=== PATIENT | male | born 1990 | race Caucasian/White ===

== ENCOUNTER 2022-12-11 00:23 | Emergency (ER) | payer OTHER ==
[~2022-12-11] VITALS: Ht 182.9 cm; Wt 65.8 kg
[2022-12-11] MEDS ORDERED: PARO20 PO (01:58)
== END 2022-12-11 03:30 | disposition short-term general hospital (02) ==
LOC: ER 00:23
DX: S01.551A Open bite of lip, initial encounter (principal); W54.0XXA Bitten by dog, initial encounter; Z79.899 Other long term (current) drug therapy
CPT/HCPCS: 90714; J0295; J1885; J2270